=== PATIENT | female | born 2000 | race Caucasian/White ===

== ENCOUNTER 2018-04-15 07:54 | Emergency (ER) | payer OTHER, MEDICAID, SELFPAY ==
[2018-04-15 08:04] VITALS: BP 121/74; PULSE 82; RESP 12; TEMP 37.1; O2SAT 99
--- NOTE | 2018-04-15 08:17 | DI.US.S_ITS ---
PROCEDURE: US PELVIC COMPLETE INDICATIONS: L ovary Dermoid cyst with worse pain had vag US in past TECHNIQUE: Real-time scanning was performed of the pelvic organs, with image documentation. Additional endovaginal scanning was necessary due to incomplete visualization of the adnexal and endometrial structures by transabdominal scanning. COMPARISON: [facility], US, PELVIC COMPLETE, 02/17/2014, 5:46. [facility], CT, ABDOMEN/PELVIS WITH CONTRAST, 02/17/2014, 19:26. [facility], US, PELVIC COMPLETE, 02/12/2018, 9:44. [facility], US, PELVIC COMPLETE, 01/01/2018, 10:10. [facility], US, PELVIC COMPLETE, 03/31/2017, 12:52. FINDINGS: Transabdominal scanning: Limited scanning through the kidneys shows no hydronephrosis. No pathologic free abdominal or pelvic fluid. Endovaginal scanning: Uterus: Uterus is normal in size at 3.2 x 4.3 x 6.1 cm, anteverted. The endometrium measures 3.5 mm in combined thickness. Ovaries: The right ovary measures 2.1 x 3.0 x 1.5 cm, and the left is enlarged at 4.2 x 3.2 x 4.7 cm. It contains a complex avascular mass, portions of which are hyperechoic, measuring up to 3.4 x 2.9 x 2.7 cm, and a simple cyst measuring up to 1.9 x 1.9 x 2.2 cm. The left ovarian mass was previously present. IMPRESSION: Persistent complex left ovarian mass, which by ultrasound has an appearance highly suggestive of representing dermoid tumor. This was present on prior CT and ultrasound scanning. Gynecological surgical consultation is recommended given the malignant potential of dermoid tumor (teratoma). Dictated by: Spencer Broussard M.D. on 04/15/2018 at 9:37 Approved by: Spencer Broussard M.D. on 04/15/2018 at 9:43
--- NOTE | 2018-04-15 08:19 | ED.FEMALEGU ---
HPI - Female Genitourinary General Chief complaint: Urogenital-Female Stated complaint: OVARIAN CYST PAIN,NAUSEA Time Seen by Provider: 04/15/18 08:01 Source: patient and family Mode of arrival: ambulatory Limitations: no limitations History of Present Illness HPI Narrative: 17-year-old female currently on oral control pill here for evaluation of worsening pain in her left lower quadrant with associated nausea. States she was woken up in the middle the night with the pain. She states that she has a known left ovarian dermoid cyst. Scheduled to have this removed at the [facility] in approximately 1 month from now. She states that she has had dermoid cyst in the past and has had them surgically removed. She states that she also has endometriosis. She states that last night she had an increase in the pain. Not helped with any of her normal treatments such as heat and anti-inflammatories. She states she is here because she was told that this cyst could become larger and that she could have problems with her ovaries. She states that her last ultrasound was sometime earlier this year here at this hospital. She states that she has had a vaginal ultrasound of the past Related Data Previous Rx's Medication Instructions Recorded norethindrone-e.estradiol-iron 1 tab PO QDAY #1 pac 10/08/17 [ FE (28)] naproxen 500 mg PO BIDCC #60 tab 02/20/18 tramadol 50 mg PO Q6H PRN #10 tab 04/15/18 Allergies Allergy/AdvReac Type Severity Reaction Status Date / Time acetaminophen [From [facility]CO] Allergy Mild I JUST Verified 04/15/18 08:30 WENT KIND OF CRAZY ON IT hydrocodone [From [facility]CO] Allergy Mild I JUST Verified 04/15/18 08:30 WENT KIND OF CRAZY ON IT Review of Systems Constitutional Denies chills, Denies fever(s), Denies lethargy and Denies weakness Cardiovascular Denies chest pain, Denies irregular heart rhythm, Denies lightheadedness, Denies palpitations, Denies dyspnea, Denies dyspnea on exertion and Denies orthopnea Respiratory Denies cough, Denies dyspnea, Denies dyspnea on exertion and Denies wheezing Gastrointestinal Comments: Left lower quadrant abdominal pain with nausea no vomiting Genitourinary Denies hematuria, Denies flank pain, Denies urinary incontinence and Denies urinary urgency Comments: No vaginal bleeding, no vaginal discharge, Musculoskeletal Denies back pain, Denies muscle weakness, Denies numbness and Denies tingling Integumentary/Breasts Denies pruritus, Denies erythema, Denies rash and Denies wounds Neurologic Denies numbness, Denies tingling and Denies weakness Endocrine Denies palpitations Hematologic/Lymphatic Denies easy bruising Allergic/Immunologic Denies wheezing PMFSH Past Medical History Medical history: Reports other (1. Dermoid cyst 2. 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 Family history: Reports no significant family history Exam Const General: cooperative and well developed Nutritional Appearance: well nourished Orientation: alert, awake, oriented x3 and not confused Chest Chest: normal inspection of the chest Resp Effort & Inspection: normal respiratory effort, able to speak in complete sentences, no respiratory distress and no use of accessory muscles Auscultation: clear to auscultation bilaterally, no rales, no rhonchi and no wheezes Cardio Rate: regular rate Rhythm: regular rhythm Heart Sounds: no click, no gallops, no murmurs and no rubs Pulses: normal peripheral pulses GI Inspection: normal to inspection and non-distended Palpation: soft, no hepatosplenomegaly, No firm, No guarding, No pulsatile mass and tender (Left lower quadrant however no guarding no rebound) Auscultation: normal bowel sounds Other: Deferred Skin General: no rashes or lesions noted, No jaundice and No petechiae Neuro General: alert, oriented x3, gait normal and no focal motor deficits Speech: speech normal Motor: strength 5/5 throughout Sensory Exam: no sensory deficits noted Extrem General: full ROM, no clubbing, cyanosis or edema, no pedal edema and no calf tenderness MDM - Female Genitourinary MDM Narrative Medical decision making narrative: Patient with pelvic ultrasound in our system from December and January of this year however reports not available in the PACS system. Will obtain another ultrasound today. Does not show ovarian pathology secondary to the known dermoid. Patient does have follow-up with Ob already scheduled with a surgery in 30 days. Will treat symptomatically. Patient was given return precautions. Mother was at bedside for the discussion. They expressed understanding and agreement with plan Imaging Data Pelvic ultrasound: Radiologist's impression: PROCEDURE: US PELVIC COMPLETE INDICATIONS: L ovary Dermoid cyst with worse pain had vag US in past TECHNIQUE: Real-time scanning was performed of the pelvic organs, with image documentation. Additional endovaginal scanning was necessary due to incomplete visualization of the adnexal and endometrial structures by transabdominal scanning. COMPARISON: [facility], US, PELVIC COMPLETE, 02/17/2014, 5:46. [facility], CT, ABDOMEN/PELVIS WITH CONTRAST, 02/17/2014, 19:26. [facility], US, PELVIC COMPLETE, 02/12/2018, 9:44. [facility], US, PELVIC COMPLETE, 01/01/2018, 10:10. [facility], US, PELVIC COMPLETE, 03/31/2017, 12:52. FINDINGS: Transabdominal scanning: Limited scanning through the kidneys shows no hydronephrosis. No pathologic free abdominal or pelvic fluid. Endovaginal scanning: Uterus: Uterus is normal in size at 3.2 x 4.3 x 6.1 cm, anteverted. The endometrium measures 3.5 mm in combined thickness. Ovaries: The right ovary measures 2.1 x 3.0 x 1.5 cm, and the left is enlarged at 4.2 x 3.2 x 4.7 cm. It contains a complex avascular mass, portions of which are hyperechoic, measuring up to 3.4 x 2.9 x 2.7 cm, and a simple cyst measuring up to 1.9 x 1.9 x 2.2 cm. The left ovarian mass was previously present. IMPRESSION: Persistent complex left ovarian mass, which by ultrasound has an appearance highly suggestive of representing dermoid tumor. This was present on prior CT and ultrasound scanning. Gynecological surgical consultation is recommended given the malignant potential of dermoid tumor (teratoma). Dictated by: Spencer Broussard M.D. on 04/15/2018 at 9:37 Course Orders Ordered: ED Orders 04/15/18 08:17 US pelvic complete Stat Discontinued Medications Ondansetron HCl (Zofran Odt) 4 mg PO NOW ONE Stop: 04/15/18 08:20 Last Admin: 04/15/18 08:31 Dose: 4 mg Last Vital Signs Temp 98.7 F 04/15/18 08:04 Pulse 82 04/15/18 08:04 Resp 12 04/15/18 08:04 BP 121/74 H 04/15/18 08:04 Pulse Ox 99 04/15/18 08:04 Discharge Plan Departure Patient Disposition: Home, Self-Care Clinical Impression: Dermoid cyst of left ovary Instructions: DI for Ovarian Cyst Activity Restrictions/Additional Instructions: Keep all of your scheduled medical appointments. Return to the emergency department for any new or worsening symptoms Prescriptions: New tramadol 50 mg tablet 50 mg PO Q6H PRN (Reason: pain) Qty: 10 RF: 0 No Action norethindrone-e.estradiol-iron [ ()] 1.5 MG/30 MCG tablet 1 tab PO QDAY Qty: 1 RF: 12 naproxen 500 MG tablet 500 mg PO BIDCC Qty: 60 RF: 1 Stand Alone Forms: Work/School Restrictions
--- NOTE | 2018-04-15 08:30 | ED_ITS ---
HPI - Female Genitourinary General Chief complaint: Urogenital-Female Stated complaint: OVARIAN CYST PAIN,NAUSEA Time Seen by Provider: 04/15/18 08:01 Source: patient and family Mode of arrival: ambulatory Limitations: no limitations History of Present Illness HPI Narrative: 17-year-old female currently on oral control pill here for evaluation of worsening pain in her left lower quadrant with associated nausea. States she was woken up in the middle the night with the pain. She states that she has a known left ovarian dermoid cyst. Scheduled to have this removed at the [facility] in approximately 1 month from now. She states that she has had dermoid cyst in the past and has had them surgically removed. She states that she also has endometriosis. She states that last night she had an increase in the pain. Not helped with any of her normal treatments such as heat and anti-inflammatories. She states she is here because she was told that this cyst could become larger and that she could have problems with her ovaries. She states that her last ultrasound was sometime earlier this year here at this hospital. She states that she has had a vaginal ultrasound of the past Related Data Previous Rx's Medication Instructions Recorded norethindrone-e.estradiol-iron 1 tab PO QDAY #1 pac 10/08/17 [ FE (28)] naproxen 500 mg PO BIDCC #60 tab 02/20/18 tramadol 50 mg PO Q6H PRN #10 tab 04/15/18 Allergies Allergy/AdvReac Type Severity Reaction Status Date / Time acetaminophen [From [facility]] Allergy Mild I JUST Verified 04/15/18 08:30 WENT KIND OF CRAZY ON IT hydrocodone [From [facility]CO] Allergy Mild I JUST Verified 04/15/18 08:30 WENT KIND OF CRAZY ON IT Review of Systems Constitutional Denies chills, Denies fever(s), Denies lethargy and Denies weakness Cardiovascular Denies chest pain, Denies irregular heart rhythm, Denies lightheadedness, Denies palpitations, Denies dyspnea, Denies dyspnea on exertion and Denies orthopnea Respiratory Denies cough, Denies dyspnea, Denies dyspnea on exertion and Denies wheezing Gastrointestinal Comments: Left lower quadrant abdominal pain with nausea no vomiting Genitourinary Denies hematuria, Denies flank pain, Denies urinary incontinence and Denies urinary urgency Comments: No vaginal bleeding, no vaginal discharge, Musculoskeletal Denies back pain, Denies muscle weakness, Denies numbness and Denies tingling Integumentary/Breasts Denies pruritus, Denies erythema, Denies rash and Denies wounds Neurologic Denies numbness, Denies tingling and Denies weakness Endocrine Denies palpitations Hematologic/Lymphatic Denies easy bruising Allergic/Immunologic Denies wheezing PMFSH Past Medical History Medical history: Reports other (1. Dermoid cyst 2. 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 MILL OPERATOR history Family history: Reports no significant family history Exam Const General: cooperative and well developed Nutritional Appearance: well nourished Orientation: alert, awake, oriented x3 and not confused Chest Chest: normal inspection of the chest Resp Effort & Inspection: normal respiratory effort, able to speak in complete sentences, no respiratory distress and no use of accessory muscles Auscultation: clear to auscultation bilaterally, no rales, no rhonchi and no wheezes Cardio Rate: regular rate Rhythm: regular rhythm Heart Sounds: no click, no gallops, no murmurs and no rubs Pulses: normal peripheral pulses GI Inspection: normal to inspection and non-distended Palpation: soft, no hepatosplenomegaly, No firm, No guarding, No pulsatile mass and tender (Left lower quadrant however no guarding no rebound) Auscultation: normal bowel sounds Other: Deferred Skin General: no rashes or lesions noted, No jaundice and No petechiae Neuro General: alert, oriented x3, gait normal and no focal motor deficits Speech: speech normal Motor: strength 5/5 throughout Sensory Exam: no sensory deficits noted Extrem General: full ROM, no clubbing, cyanosis or edema, no pedal edema and no calf tenderness MDM - Female Genitourinary MDM Narrative Medical decision making narrative: Patient with pelvic ultrasound in our system from December and January of this year however reports not available in the PACS system. Will obtain another ultrasound today. Does not show ovarian pathology secondary to the known dermoid. Patient does have follow-up with Ob already scheduled with a surgery in 30 days. Will treat symptomatically. Patient was given return precautions. Mother was at bedside for the discussion. They expressed understanding and agreement with plan Imaging Data Pelvic ultrasound: Radiologist's impression: PROCEDURE: US PELVIC COMPLETE INDICATIONS: L ovary Dermoid cyst with worse pain had vag US in past TECHNIQUE: Real-time scanning was performed of the pelvic organs, with image documentation. Additional endovaginal scanning was necessary due to incomplete visualization of the adnexal and endometrial structures by transabdominal scanning. COMPARISON: [facility], US, PELVIC COMPLETE, 02/17/2014, 5:46. [facility], CT, ABDOMEN/PELVIS WITH CONTRAST, 02/17/2014, 19:26. [facility], US , PELVIC COMPLETE, 02/12/2018, 9:44. [facility], US, PELVIC COMPLETE, , 10:10. [facility], US, PELVIC COMPLETE, 03/31/2017, 12:52. FINDINGS: Transabdominal scanning: Limited scanning through the kidneys shows no hydronephrosis. No pathologic free abdominal or pelvic fluid. Endovaginal scanning: Uterus: Uterus is normal in size at 3.2 x 4.3 x 6.1 cm, anteverted. The endometrium measures 3.5 mm in combined thickness. Ovaries: The right ovary measures 2.1 x 3.0 x 1.5 cm, and the left is enlarged at 4.2 x 3.2 x 4.7 cm. It contains a complex avascular mass, portions of which are hyperechoic, measuring up to 3.4 x 2.9 x 2.7 cm, and a simple cyst measuring up to 1.9 x 1.9 x 2.2 cm. The left ovarian mass was previously present. IMPRESSION: Persistent complex left ovarian mass, which by ultrasound has an appearance highly suggestive of representing dermoid tumor. This was present on prior CT and ultrasound scanning. Gynecological surgical consultation is recommended given the malignant potential of dermoid tumor (teratoma). Dictated by: Spencer Broussard M.D. on 04/15/2018 at 9:37 Course Orders Ordered: ED Orders 04/15/18 08:17 US pelvic complete Stat Discontinued Medications Ondansetron HCl (Zofran Odt) 4 mg PO NOW ONE Stop: 04/15/18 08:20 Last Admin: 04/15/18 08:31 Dose: 4 mg Last Vital Signs Temp 98.7 F 04/15/18 08:04 Pulse 82 04/15/18 08:04 Resp 12 04/15/18 08:04 BP 121/74 H 04/15/18 08:04 Pulse Ox 99 04/15/18 08:04 Discharge Plan Departure Patient Disposition: Home, Self-Care Clinical Impression: Dermoid cyst of left ovary Instructions: DI for Ovarian Cyst Activity Restrictions/Additional Instructions: Keep all of your scheduled medical appointments. Return to the emergency department for any new or worsening symptoms Prescriptions: New tramadol 50 mg tablet 50 mg PO Q6H PRN (Reason: pain) Qty: 10 RF: 0 No Action norethindrone-e.estradiol-iron [ ()] 1.5 MG/30 MCG tablet 1 tab PO QDAY Qty: 1 RF: 12 naproxen 500 MG tablet 500 mg PO BIDCC Qty: 60 RF: 1 Stand Alone Forms: Work/School Restrictions
[2018-04-15] MEDS: ONDANSETRON 4 MG ODT PO (08:31)
[2018-04-15 10:24] VITALS: BP 128/67; PULSE 77; RESP 15; O2SAT 100
== END 2018-04-15 10:24 | disposition home or self-care (01) ==
PROVIDERS: Emergency Provider Emergency Medicine
DX: D27.1 Benign neoplasm of left ovary (principal)
CPT/HCPCS: 76830; 76856; 81003; 81025; 99282; 99284

== ENCOUNTER → 2020-08-05 11:37 | Outpatient (CLI) | payer OTHER, MEDICAID, SELFPAY ==
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
== END ==
PROVIDERS: PCP Family Medicine; Referring Provider Nurse Practitioner Family; Visit Provider Nurse Practitioner Family
DX: M25.561 Pain in right knee (principal)
CPT/HCPCS: 73562

== ENCOUNTER → 2020-08-10 08:13 | Outpatient (CLI) | payer OTHER, MEDICAID, SELFPAY ==
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
== END ==
PROVIDERS: PCP Family Medicine; Referring Provider Family Medicine; Visit Provider Nurse Practitioner Family
DX: S39.91XA Unspecified injury of abdomen, initial encounter (principal); V89.2XXA Person injured in unspecified motor-vehicle accident, traffic, initial encounter
CPT/HCPCS: 76700

== ENCOUNTER → 2020-09-13 11:19 | Outpatient (CLI) | payer OTHER, MEDICAID, SELFPAY ==
--- NOTE | 2020-09-13 11:21 | DI.RAD.S_ITS ---
PROCEDURE: XR CERVICAL SPINE 2V OR 3V INDICATIONS: neck pain TECHNIQUE: 3 view(s) of the cervical spine were acquired. COMPARISON: None. FINDINGS: Bones: No fractures or dislocations to the C7-T1 level. The lateral masses of C1 appear intact on the odontoid view. No suspicious bony lesions. Cervical straightening is present. Soft tissues: No prevertebral soft tissue swelling. IMPRESSION: Cervical straightening. Otherwise, unremarkable exam. Dictated by: Jessica Solano M.D. on 09/13/2020 at 17:02 Approved by: Jessica Solano M.D. on 09/13/2020 at 17:03
== END ==
PROVIDERS: PCP Family Medicine; Referring Provider Family Medicine; Visit Provider Family Medicine
DX: M54.2 Cervicalgia (principal); G89.29 Other chronic pain
CPT/HCPCS: 72040

== ENCOUNTER → 2020-12-15 09:14 | Outpatient (CLI) | payer OTHER, MEDICAID, SELFPAY ==
[2020-12-15 12:23] LABS: Urine N gonorrhoeae NOT DETECTED
[2020-12-15 12:41] LABS: Urine Chlamydia NOT DETECTED
[2020-12-15 16:29] LABS: HIV 1 & 2 Ab/Ag 4th Gen Combo NEGATIVE (NEGATIVE); Hep C Virus Ab w/Reflex Quant NEGATIVE s/c (NEGATIVE); Hepatitis B Surface Antigen NEGATIVE s/c (NEGATIVE)
[2020-12-16 05:40] LABS: RPR Screen Non Reactive (Non Reactive)
[2020-12-16 06:04] LABS: HSV 2 IGG AB < 0.91 index (0.00-0.90); HSV1IGG < 0.91 index (0.00-0.90)
[2020-12-16 19:45] LABS: HSV I/II IgM <0.91 Ratio (0.00-0.90)
== END ==
PROVIDERS: PCP Family Medicine; Referring Provider Registered Nurse; Visit Provider Registered Nurse
DX: Z20.2 Contact with and (suspected) exposure to infections with a predominantly sexual mode of transmission (principal)
CPT/HCPCS: 36415; 86592; 86694; 86695; 86696; 86803; 87340; 87389; 87491; 87591

== ENCOUNTER → 2021-02-16 13:44 | Outpatient (CLI) | payer OTHER, MEDICAID, SELFPAY ==
[2021-02-16] MEDS: COVID-19 VACC #1, MRNA(MOD) 100 MCG/0.5 ML VIAL IM (13:48)
== END ==
PROVIDERS: PCP Family Medicine; Visit Provider Internal Medicine
DX: Z23 Encounter for immunization (principal)
CPT/HCPCS: 0011A; 91301

== ENCOUNTER → 2021-03-02 10:31 | Outpatient (CLI) | payer OTHER, MEDICAID, SELFPAY ==
--- NOTE | 2021-03-02 10:32 | DI.US.S_ITS ---
PROCEDURE: US PELVIC COMPLETE INDICATIONS: Evaluate recurrent ovarian dermoid cyst TECHNIQUE: Real-time scanning was performed of the pelvic organs, with image documentation. Additional endovaginal scanning was necessary due to incomplete visualization of the adnexal and endometrial structures by transabdominal scanning. COMPARISON: [facility], US, US PELVIC COMPLETE, 04/15/2018, 8:26. FINDINGS: Uterus: Uterus is normal in size at 4.2 x 2.5 x 3.9 cm. Uterus is retroverted. The endometrium measures 2 mm in combined thickness. Homogeneous uterine echotexture. Ovaries: Right ovary is normal in appearance measuring 3.3 x 1.7 x 1.6 cm. No right-sided ovarian or adnexal mass lesions. Left ovary measures 3.7 x 4.8 x 4.1 cm. Multiple left ovarian cysts are seen measuring up to 2.3 cm in maximum dimension. Redemonstration of complex, heterogeneous left ovarian mass measuring approximately 7.1 x 5.7 x 6.2 cm. There is internal vascularity within this mass. This has demonstrated interval increase in size of the previously measured 3.4 x 2.9 x 2.7 cm. Other: No pathologic free abdominal or pelvic fluid. IMPRESSION: Interval increase in persistent complex left ovarian mass which has previously demonstrated sonographic features suggestive of a dermoid tumor. This mass has increased substantially in size now measuring 7.1 x 5.7 x 6.2 cm versus previously 2.4 x 2.9 x 2.7 cm in April 2018. Recommend further evaluation with gynecological surgical consultation. Dictated by: Bill Roberts M.D. on 03/02/2021 at 12:37 Approved by: Bill Roberts M.D. on 03/02/2021 at 13:00
== END ==
PROVIDERS: PCP Family Medicine; Referring Provider Obstetrics & Gynecology; Visit Provider Obstetrics & Gynecology
DX: D27.1 Benign neoplasm of left ovary (principal); N80.3 Endometriosis of pelvic peritoneum; N92.6 Irregular menstruation, unspecified; R10.2 Pelvic and perineal pain
CPT/HCPCS: 76830; 76856

== ENCOUNTER → 2021-03-09 10:20 | Outpatient (CLI) | payer OTHER, MEDICAID, SELFPAY ==
--- NOTE | 2021-03-09 10:24 | DI.RAD.S_ITS ---
PROCEDURE: XR RIBS LT MIN 3V W CXR1V INDICATIONS: l lower rib pain TECHNIQUE: 2 views of the left ribs were acquired, along with a single view chest. COMPARISON: None. FINDINGS: Surgical changes and devices: Bilateral nipple piercing devices are noted.. Bones and chest wall: No fractures or dislocations. No suspicious bony lesions. Overlying soft tissues appear unremarkable. Lungs and pleura: No pleural effusions or pneumothorax. Lungs appear clear. Mediastinum: Mediastinal contours appear normal. Heart size is normal. IMPRESSION: Chest without acute cardiopulmonary abnormalities. No acute, displaced rib fractures identified. Dictated by: Bill Roberts M.D. on 03/09/2021 at 10:41 Approved by: Bill Roberts M.D. on 03/09/2021 at 10:42
== END ==
PROVIDERS: PCP Family Medicine; Referring Provider Physician Assistant; Visit Provider Physician Assistant
DX: R07.81 Pleurodynia (principal)
CPT/HCPCS: 71101

== ENCOUNTER 2021-03-10 18:08 | Emergency (ER) | payer OTHER, MEDICAID, SELFPAY ==
[2021-03-10 18:19] VITALS: BP 156/81; PULSE 82; RESP 16; TEMP 36.4; O2SAT 98; BMI 34.9
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
[2021-03-10] MEDS: KETOROLAC 60 MG/2 ML VIAL 30 MG IM (19:16)
[2021-03-10] MEDS: ONDANSETRON 4 MG ODT SL (19:17)
[2021-03-10] MEDS: TRAMADOL 50 MG PREPACK 1 BOTTLE MISC (21:16)
[2021-03-10] MEDS: ONDANSETRON 4 MG ODT PREPACK 1 BOTTLE MISC (21:16)
[2021-03-10 21:24] VITALS: BP 133/88; PULSE 87; RESP 20; O2SAT 97
== END 2021-03-10 21:25 | disposition home or self-care (01) ==
PROVIDERS: Emergency Provider Emergency Medicine; PCP Family Medicine
DX: N83.201 Unspecified ovarian cyst, right side (principal)
CPT/HCPCS: 76830; 76856; 81003; 81025; 96372; 99284; J1885

== ENCOUNTER → 2021-03-16 13:28 | Outpatient (CLI) | payer OTHER, MEDICAID, SELFPAY ==
[2021-03-16] MEDS: COVID-19 VACC #2, MRNA(MOD) 100 MCG/0.5 ML VIAL IM (13:34)
== END ==
PROVIDERS: PCP Family Medicine; Visit Provider Internal Medicine
DX: Z23 Encounter for immunization (principal)
CPT/HCPCS: 0012A; 91301

== ENCOUNTER → 2021-08-22 07:30 | Outpatient (CLI) | payer OTHER, MEDICAID, SELFPAY ==
[2021-08-22 08:40] LABS: COVID19 -Nasal RAPID Negative (Negative)
== END ==
PROVIDERS: PCP Family Medicine; Visit Provider Physician Assistant
DX: Z20.822 Contact with and (suspected) exposure to COVID-19 (principal)
CPT/HCPCS: 87635

== ENCOUNTER → 2021-11-29 10:06 | Outpatient (CLI) | payer OTHER, MEDICAID, SELFPAY ==
[2021-11-29 12:32] LABS: Urine N gonorrhoeae NOT DETECTED
[2021-11-29 13:14] LABS: Urine Chlamydia NOT DETECTED
== END ==
PROVIDERS: PCP Family Medicine; Visit Provider Nurse Practitioner Family
DX: R30.0 Dysuria (principal)
CPT/HCPCS: 81002; 87086; 87210; 87491; 87591

== ENCOUNTER 2021-12-30 11:08 | Emergency (ER) | payer OTHER, MEDICAID, SELFPAY ==
[2021-12-30] VITALS (8 sets, daily range): BP systolic 110–136; BP diastolic 56–94; PULSE 65–86; RESP 16; TEMP 36.7; O2SAT 75–99; BMI 40.1
[2021-12-30] MEDS: ONDANSETRON 4 MG ODT PO (11:31)
[2021-12-30] MEDS: ONDANSETRON 4 MG/2 ML INJ IV ×2 (14:15→16:19)
[2021-12-30 14:28] LABS: Add Manual Diff / Slide Review NO; Basophils Absolute Auto 100 /uL (0-100); Basophils Percent Auto 0.9 % (0-2); Eosinophils Absolute Auto 100 /uL (0-450); Eosinophils Percent Auto 0.5 % (2-4); Hematocrit 39.1 % (36-46); Lymphocytes Absolute Auto 1900 /uL (1100-4500); Lymphocytes Percent Auto 15.9 % (25-40); Mean Corpuscular HGB Conc 33.2 % (30-36); Mean Corpuscular Hemoglobin 28.3 PG (26-34); Mean Corpuscular Volume 85.3 fL (80-100); Monocytes Absolute Auto 600 /uL (0-900); Monocytes Percent Auto 4.7 % (3-14); Neutrophils Absolute Auto 9100 /uL (1500-7000); Platelet Count 354 X10^3/uL (150-400); Red Blood Cell Count 4.58 X10^6/uL (4.0-5.2); Red Cell Distribution Width 14.4 % (11.6-14.8); White Blood Cell Count 11.6 X10^3/uL (4.5-11.0)
[2021-12-30 14:38] LABS: Bacteria Urine Many (>30); Culture Indicated Urine Cult Not Indicated; RBC Urine 5-10/HPF (0-5/HPF); Squamous Epithelial Cell Urine 5-10 /HPF (0-5/HPF); WBC Urine 0-1/HPF (0-5/HPF)
[2021-12-30 14:43] LABS: Alanine Aminotransferase 35 IU/L (<35); Albumin 4.3 g/dL (3.5-5.0); Albumin Globulin Ratio 1.4 (1.0-2.8); Alkaline Phosphatase 67 U/L (38-126); Aspartate Aminotransferase 32 IU/L (14-36); BUN Creatinine Ratio 15.5 (6-22); Bilirubin Total 0.2 mg/dL (0.2-1.3); Blood Urea Nitrogen 9 mg/dL (7-17); Calcium 9.3 mg/dL (8.4-10.2); Carbon Dioxide 26 mmol/L (22-32); Chloride 106 mmol/L (98-107); Estimated Glomerular Filt Rate > 60.0 mL/min (>60); Glucose 95 mg/dL (70-100); HEMOLYSIS < 15 (0-50); Lipase 47 U/L (23-300); Potassium 3.9 mmol/L (3.4-5.1); Sodium 138 mmol/L (137-145); Total Protein 7.3 g/dL (6.3-8.2)
[2021-12-30] MEDS: KETOROLAC 30 MG/ML VIAL 15 MG IV (14:57)
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
--- NOTE | 2021-12-30 15:18 | DI.CT.S_ITS ---
PROCEDURE: CT ABDOMEN PELVIS W CON INDICATIONS: abdominal pain TECHNIQUE: After the administration of oral and IV contrast, axial sections were acquired from the lung bases to the pubic symphysis. Coronal and sagittal reformats were performed. For radiation dose reduction, the following was used: automated exposure control, adjustment of mA and/or kV according to patient size. COMPARISON: [facility], CT, ABDOMEN/PELVIS WITH CONTRAST, 02/17/2014, 19:26. FINDINGS: Image quality: Excellent. Lung bases: Unremarkable. Heart: Heart is normal in size. ABDOMEN: Liver: No mass lesion. Gallbladder: Within normal limits without gallstones. Biliary ducts: No biliary ductal dilatation. Pancreas: Unremarkable. Spleen: Normal in size. Adrenal Glands: No adrenal nodules. Kidneys and Ureters: No hydronephrosis. Stomach and Bowel: Stomach, small bowel loops, and colon are normal in caliber and wall thickness. The appendix is normal in appearance. There is colonic diverticulosis without acute diverticulitis. Peritoneum: There is a small amount of free fluid in the pelvis which appears within physiologic limits. No free air. Ventral Wall: No hernia. Abdominal Nodes: No retroperitoneal or mesenteric adenopathy by size criteria. Vessels: Aorta and inferior vena cava are normal in size. PELVIS: Pelvic Organs: The uterus and right ovary appear within normal size limits. Left ovary is surgically absent by history. Bladder: Unremarkable. Pelvic Nodes: No enlarged lymph nodes. Miscellaneous: No inguinal hernias are seen. Bones: Visualized osseous structures demonstrate no suspicious focal lesions. IMPRESSION: 1. No definite acute intra-abdominal abnormality. Specifically, no evidence of appendicitis. 2. Colonic diverticulosis without acute diverticulitis. Dictated by: Calvin Toure M.D. on 12/30/2021 at 15:59 Approved by: Calvin Toure M.D. on 12/30/2021 at 16:02
[2021-12-30] MEDS: HYDROMORPHONE 1 MG INJ IV (16:19)
[2021-12-30] MEDS: SODIUM CHLORIDE 0.9% 1,000 ML 1000 ML IV (16:19)
== END 2021-12-30 17:47 | disposition home or self-care (01) ==
PROVIDERS: Emergency Provider Emergency Medicine; PCP Family Medicine
DX: R10.32 Left lower quadrant pain (principal)
CPT/HCPCS: 36415; 74177; 80053; 81003; 81015; 81025; 83690; 85025; 96361; 96374; 96375; 96376; 99284; J1170; J1885; J2405; Q9967

== ENCOUNTER → 2022-01-30 09:11 | Outpatient (CLI) | payer OTHER, MEDICAID, SELFPAY ==
[2022-01-30 12:08] LABS: HCG Quantitative /Beta subunit < 2.4 mIU/mL
== END ==
PROVIDERS: PCP Family Medicine; Referring Provider Family Medicine; Visit Provider Family Medicine
DX: N92.6 Irregular menstruation, unspecified (principal)
CPT/HCPCS: 36415; 84702

== ENCOUNTER → 2022-05-21 16:37 | Outpatient (CLI) | payer OTHER, MEDICAID, SELFPAY | PROVIDERS: Visit Provider Student in an Organized Health Care Education/Training Program | DX: L02.91 Cutaneous abscess, unspecified (principal) | CPT/HCPCS: 87070; 87075; 87205 ==

== ENCOUNTER → 2022-06-22 10:20 | Outpatient (CLI) | payer OTHER, MEDICAID, SELFPAY ==
[2022-06-22 10:50] LABS: COVID19 -Nasal RAPID Negative (Negative)
[2022-06-22 12:42] LABS: Influenza A - CEPHEID Flu A NEGATIVE (NEGATIVE); Influenza B - CEPHEID Flu B NEGATIVE (NEGATIVE)
== END ==
PROVIDERS: Visit Provider Student in an Organized Health Care Education/Training Program
DX: Z20.822 Contact with and (suspected) exposure to COVID-19 (principal); J31.2 Chronic pharyngitis; J06.9 Acute upper respiratory infection, unspecified
CPT/HCPCS: 87070; 87502; 87635; 87880

== ENCOUNTER 2022-09-14 10:32 | Emergency (ER) | payer OTHER, MEDICAID, SELFPAY ==
[2022-09-14 10:35] VITALS: BP 135/74; PULSE 95; RESP 14; TEMP 37.1; O2SAT 96; BMI 39.1
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
== END 2022-09-14 11:15 | disposition home or self-care (01) ==
PROVIDERS: Emergency Provider Emergency Medicine; PCP Family Medicine
DX: N76.4 Abscess of vulva (principal)
CPT/HCPCS: 56405; 99281; 99282

== ENCOUNTER → 2022-11-26 09:05 | Outpatient (CLI) | payer OTHER, MEDICAID, SELFPAY ==
--- NOTE | 2022-11-26 09:06 | DI.MRI.S_ITS ---
PROCEDURE: MR ABDOME PELVIS WWO CON INDICATIONS: cyst, possible right ovarian mass. TECHNIQUE: Coronal HASTE, sagittal breath-hold T2 FSE; axial 2-D FLASH in- and [id number], axial T1 FSE with fat saturation through the pelvis. Optional long- and short-axis uterine nonbreath-hold T2 FSE through the uterus. Sagittal or axial dynamic VIBE during IV gadolinium administration; postgadolinium axial and sagittal VIBE/2-D FLASH with fat saturation from the iliac crests to the symphysis. COMPARISON: [facility] Ultrasound, US, US PELVIC COMPLETE WITH TRANSVAGINAL, 09/11/2022, 16:11. FINDINGS: Image quality: Excellent. Uterus: The uterus is retroverted and anteflexed. The cervix appears normal. No myometrial masses. Normal thickness endometrium and junctional zone. Normal uterine enhancement. Adnexa: The left ovary is surgically absent. The right ovary is normal in size and contains several subcentimeter follicles. Additionally, it contains a rounded mass measuring 2.0 x 1.9 x 1.8 cm demonstrating slightly heterogeneous, mainly hyperintense T1 and T2 signal. It demonstrates internal signal loss on fat saturated imaging. Additionally, there are small nodular peripheral areas of signal loss on T1 out of phase imaging indicating a fat tissue interface and/or microscopic. Postcontrast, there is mild enhancement on the venous phase of a small solid internal component. There is no suspicious pelvic adenopathy. Urinary system: The urinary bladder is largely decompressed on much the exam. The wall thickness is normal. There is no suspicious bladder mass or wall thickening. No evidence of pelvic floor laxity in the absence of provocation. Urethra is normal in morphology. Abdomen: The stomach is filled with ingested material and the gallbladder is contracted. There is no biliary dilatation. The liver, spleen, adrenal glands, pancreas, and kidneys are within normal limits. Subcentimeter corticomedullary cysts present in the mid and lower pole of the right kidney. Small bowel loops are normal. There is occasional diverticulosis of the colon. No retroperitoneal or mesenteric adenopathy. No unusual enhancement. Vasculature is normal. Bones and soft tissues: Normal marrow signal. No ventral hernia. IMPRESSION: 1. 2.0 cm heterogeneous right ovarian mass with soft tissue and lipid components consistent with a dermoid tumor. 2. Left ovary is surgically absent. 3. Annual ultrasound surveillance to reassess dermoid tumor size is recommended. Dictated by: Michelle Silvestre M.D. on 11/27/2022 at 22:00 Approved by: Michelle Silvestre M.D. on 11/27/2022 at 22:27
== END ==
PROVIDERS: PCP Family Medicine; Referring Provider Family Medicine; Visit Provider Family Medicine
DX: N83.8 Other noninflammatory disorders of ovary, fallopian tube and broad ligament (principal); Z90.721 Acquired absence of ovaries, unilateral
CPT/HCPCS: 72197; 74183; A9579

== ENCOUNTER → 2022-12-04 13:00 | Outpatient (CLI) | payer OTHER, MEDICAID, SELFPAY ==
[2022-12-04 14:14] LABS: Influenza A - CEPHEID Flu A NEGATIVE (NEGATIVE); Influenza B - CEPHEID Flu B NEGATIVE (NEGATIVE); Respiratory Syncytial Virus Negative (Negative)
[2022-12-04 14:20] LABS: COVID-19 CEPHEID 4-PLEX PCR Negative (Negative)
== END ==
PROVIDERS: PCP Family Medicine; Visit Provider Physician Assistant Medical
DX: J02.9 Acute pharyngitis, unspecified (principal); R05.1 Acute cough
CPT/HCPCS: 0241U; 87070

== ENCOUNTER → 2023-06-21 16:24 | Outpatient (CLI) | payer OTHER, SELFPAY ==
[2023-06-21 18:25] LABS: Urine N gonorrhoeae NOT DETECTED
[2023-06-21 18:30] LABS: Urine Chlamydia NOT DETECTED
[2023-06-21 18:41] LABS: HCG Quantitative /Beta subunit < 2.4 mIU/mL
[2023-06-21 18:52] LABS: Cancer Antigen 125 16.6 U/mL (0-35)
[2023-06-21 19:15] LABS: HIV 1 & 2 Ab/Ag 4th Gen Combo NEGATIVE (NEGATIVE)
[2023-06-22 04:27] LABS: RPR Screen Non Reactive (Non Reactive)
[2023-06-22 08:47] LABS: HBsAg Screen Negative (Negative); Hepatitis A Antibody IgM Negative (Negative); Hepatitis B Core Antibody IgM Negative (Negative); Hepatitis C Antibody Non Reactive (Non Reactive)
== END ==
PROVIDERS: Family Medicine; Referring Provider Family Medicine; Visit Provider Family Medicine
DX: Z32.00 Encounter for pregnancy test, result unknown (principal); N83.8 Other noninflammatory disorders of ovary, fallopian tube and broad ligament
CPT/HCPCS: 36415; 80074; 84702; 86304; 86592; 87389; 87491; 87591

== ENCOUNTER 2024-06-12 16:52 | Emergency (ER) | payer OTHER, SELFPAY ==
[2024-06-12 16:57] VITALS: BP 159/95; PULSE 102; RESP 14; TEMP 36.7; O2SAT 97; BMI 37.5
--- NOTE | 2024-06-12 17:57 | DI.US.S_ITS ---
PROCEDURE: US PELVIC COMPLETE INDICATIONS: SPOTTING; EARLY TECHNIQUE: Real-time scanning was performed of the pelvic organs, with image documentation. Additional endovaginal scanning was necessary due to incomplete visualization of the adnexal and endometrial structures by transabdominal scanning. COMPARISON: [facility], US, US PELVIC COMPLETE WITH TRANSVAGINAL, 02/17/2024, 8:44. FINDINGS: Uterus: Uterus is anteverted and normal in size at 7.6 x 4.2 x 4.7 cm. The myometrium is homogeneous. The endometrium measures 10 mm combined thickness. No intrauterine fluid collection or gestational sac is seen. Ovaries: The right ovary measures 5.6 x 6.1 x 4.6 cm, with a calculated ovarian volume of 82 cc. A 3.6 cm simple cyst is seen in the right ovary. There is a right ovarian dermoid tumor measuring 3.8 cm. A 2.4 cm hypoechoic structure in the right ovary is also noted with peripheral vascularity. Left ovary is not visualized. No suspicious left adnexal mass. Other: No pathologic free abdominal or pelvic fluid. IMPRESSION: 1. of unknown location. Findings may represent normal early , early failure, or ectopic . Recommend correlation with clinical findings and serial beta HCG measurements as well as follow-up ultrasound as needed. 2. Hypoechoic structure in the right ovary with peripheral vascularity may represent a corpus luteal cyst, hemorrhagic cyst, solid tumor, or possibly ovarian ectopic. 3. Right ovarian dermoid tumor measures up to 3.8 cm, likely not significantly changed when compared to the ultrasound from 02/17/2024. Approved by: Zackery Monson M.D. on 06/12/2024 at 19:41
--- NOTE | 2024-06-12 18:22 | ED.PREGNANCY ---
HPI - General Chief complaint: Urogenital-Female Stated complaint: 5 wks/vaginal bleeding/cramps Time Seen by Provider: 06/12/24 17:57 Source: patient Mode of arrival: Ambulatory Limitations: no limitations History of Present Illness HPI Narrative: 23-year-old female presents for vaginal bleeding in early . Patient states that she went to [facility] earlier this week and was told based on a blood test that she was approximately 5 weeks . Due to stressful family circumstances she was in exactly certain when her last menstrual cycle happened. States this is 2nd , had miscarriage this time last year. Related Data Previous Rx's Medication Instructions Recorded norethindrone 1.5 mg-ethinyl 1 tab PO QDAY #84 tabs 12/03/18 estradiol 30 mcg(21)/iron 75 mg(7) tablet (June FE .04/30 ()) prazosin 5 mg capsule 10 mg (2 x 5 mg) PO BEDTIME #60 01/04/21 caps ibuprofen 800 mg tablet 800 mg PO TID PRN pain #90 tabs 03/08/21 scopolamine base 1 mg over 3 days 1 patch transdermal Q3D PRN motion 03/08/21 transdermal patch sickness #4 ea tramadol 50 mg tablet (Ultram) 50 mg PO Q6H PRN pain #10 tabs 03/10/21 fluoxetine 10 mg capsule 10 mg PO BID #180 caps 03/23/21 oxycodone-acetaminophen 5 mg-325 1 tab PO Q6H PRN pain #10 tabs 12/30/21 mg tablet fluconazole 200 mg tablet 200 mg PO DAILY #6 tabs 08/01/22 amoxicillin 875 mg-potassium 1 tab PO BID #20 tabs 12/04/22 clavulanate 125 mg tablet lidocaine HCl 2 % mucosal jelly in 3 ml topical BID PRN pain #30 mL 03/04/23 applicator Allergies Allergy/AdvReac Type Severity Reaction Status Date / Time miconazole [From Karissa 7] AdvReac Intermediate moctezuma skin Verified 12/04/22 13:24 PMFSH - Past Medical History Medical history: Reports other Surgical history: Reports other Exam Initial Vital Signs Initial Vital Signs: Vital Signs Temperature 98.1 F 06/12/24 16:57 Pulse Rate 102 H 06/12/24 16:57 Respiratory Rate 14 06/12/24 16:57 Blood Pressure 159/95 H 06/12/24 16:57 Pulse Oximetry 97 06/12/24 16:57 Oxygen Delivery Method Room Air 06/12/24 16:57 Const: Awake, alert, no acute distress, nontoxic appearing Cardiac: regular rate, regular rhythm RESP: unlabored, speaking in complete sentences Skin: Warm, Dry, intact, no rashes Neuro: AO x3, CN II-XII grossly intact, moves all extremities Course Orders Ordered: ED Orders 06/12/24 17:57 US pelvic complete Stat 06/12/24 18:15 ABO RH Type Stat CBC Auto Diff [Complete Blood Count AUTO DIFF] Stat CMP [Comprehensive Metabolic Panel] Stat HCG Quantitative /Beta subunit Stat Vital Signs Vital signs: Vital Signs - 8 hr 06/12/24 19:57 06/12/24 19:57 Temperature 98.0 F Pulse Rate 82 Blood Pressure 127/80 Pulse Oximetry 98 MDM - OB/Uterine Contractions Lab Data 06/12/24 18:15 06/12/24 18:15 Labs: Lab Results 06/12/24 Range/Units 18:15 WBC 11.8 H (4.5-11.0) X10^3/uL RBC 4.30 (4.0-5.2) X10^6/uL Hgb 12.1 (12.0-16.0) g/dL Hct 36.8 (36-46) % MCV 85.5 (80-100) fL MCH 28.2 (26-34) PG MCHC 33.0 (30-36) % RDW 14.4 (11.6-14.8) % Plt Count 354 (150-400) X10^3/uL Neut % (Auto) 66.6 (50-75) % Lymph % (Auto) 24.9 L (25-40) % [place] % (Auto) 6.3 (3-14) % Eos % (Auto) 0.7 L (2-4) % Baso % (Auto) 1.5 (0-2) % Neut # (Auto) 7900 H (1994-6451) /uL Lymph # (Auto) 2900 (5796-8108) /uL [place] # (Auto) 700 (0-900) /uL Eos # (Auto) 100 (0-450) /uL Baso # (Auto) 200 H (0-100) /uL Sodium 136 L (137-145) mmol/L Potassium 4.2 (3.4-5.1) mmol/L Chloride 109 H (98-107) mmol/L Carbon Dioxide 21 L (22-32) mmol/L BUN 10 (7-17) mg/dL Creatinine 0.51 L (0.52-1.04) mg/dL Estimated GFR > 60 (>60) mL/min BUN/Creatinine Ratio 19.6 (6-22) Glucose 89 (70-100) mg/dL Calcium 9.1 (8.4-10.2) mg/dL Total Bilirubin 0.3 (0.2-1.3) mg/dL AST 20 (14-36) IU/L ALT 20 (<35) IU/L Alkaline Phosphatase 92 (38-126) U/L Total Protein 6.6 (6.3-8.2) g/dL Albumin 4.0 (3.5-5.0) g/dL Globulin 2.6 (1.7-4.1) g/dL Albumin/Globulin Ratio 1.5 (1.0-2.8) HCG, Quant 625.12 mIU/mL Blood Type O Positive Point of Care Testing Test Results Positive Urine Dip Bedside Urine Glucose Negative Bedside Urine Bilirubin - Negative Bedside Urine Ketone - Negative Urine Specific [place] 1.02 Bedside Urine Occult Blood - Negative Bedside Urine pH 6.0 Bedside Urine Protein - Negative Bedside Urine Urobilinogen - Negative Bedside Urine Nitrite - Negative Bedside Urine Leukocytes - Negative Esterase Imaging Data US - OB: Radiologist's Impression: PROCEDURE: US PELVIC COMPLETE INDICATIONS: SPOTTING; EARLY TECHNIQUE: Real-time scanning was performed of the pelvic organs, with image documentation. Additional endovaginal scanning was necessary due to incomplete visualization of the adnexal and endometrial structures by transabdominal scanning. COMPARISON: [facility], US, US PELVIC COMPLETE WITH TRANSVAGINAL, 02/17/2024, 8:44. FINDINGS: Uterus: Uterus is anteverted and normal in size at 7.6 x 4.2 x 4.7 cm. The myometrium is homogeneous. The endometrium measures 10 mm combined thickness. No intrauterine fluid collection or gestational sac is seen. Ovaries: The right ovary measures 5.6 x 6.1 x 4.6 cm, with a calculated ovarian volume of 82 cc. A 3.6 cm simple cyst is seen in the right ovary. There is a right ovarian dermoid tumor measuring 3.8 cm. A 2.4 cm hypoechoic structure in the right ovary is also noted with peripheral vascularity. Left ovary is not visualized. No suspicious left adnexal mass. Other: No pathologic free abdominal or pelvic fluid. IMPRESSION: 1. of unknown location. Findings may represent normal early , early failure, or ectopic . Recommend correlation with clinical findings and serial beta HCG measurements as well as follow-up ultrasound as needed. 2. Hypoechoic structure in the right ovary with peripheral vascularity may represent a corpus luteal cyst, hemorrhagic cyst, solid tumor, or possibly ovarian ectopic. 3. Right ovarian dermoid tumor measures up to 3.8 cm, likely not significantly changed when compared to the ultrasound from 02/17/2024. Approved by: Zackery Monson M.D. on 06/12/2024 at 19:41 MDM Narrative Medical decision making narrative: Well-appearing patient with vaginal bleeding in early . HCG quant 625, up from previous values at [facility], approximately 200s per patient report. Ultrasound shows no intrauterine , hypoechoic structure in the right ovary that has not specific that may be either ?corpus luteal cyst, hemorrhagic cyst, solid tumor, or possibly ovarian ectopic?. Patient informed of lab and imaging findings. Recommended repeat HCG and possible repeat ultrasound in 48-72 hours. ED return precautions discussed at bedside Discharge Plan Departure Patient Disposition: Home Clinical Impression: Vaginal bleeding affecting early , Type O blood, Rh positive Instructions: DI for Vaginal Bleeding During Activity Restrictions/Additional Instructions: Your hCG quant today was 625. Your ultrasound did not show a visible and treated in , however at your hCG levels it is still very early. I recommend repeating blood work and possible ultrasound in 48-72 hours to see what direction your quant levels are trending. Prescriptions: No Action lidocaine HCl 2 % jelly in applicator 3 ml topical BID PRN (Reason: pain) Qty: 30 0RF Rx Instructions: Do not use longer than 3-4 days amoxicillin-pot clavulanate 875-125 mg tablet 1 tab PO BID Qty: 20 0RF norethindrone-e.estradiol-iron [Junel FE 1.5/30 (28)] 1.5 mg-30 mcg (21)/75 mg (7) tablet 1 tab PO QDAY Qty: 84 3RF fluoxetine 10 mg capsule 10 mg PO BID Qty: 180 0RF Rx Instructions: Administer in the morning and at noon/midday fluconazole 200 mg tablet 200 mg PO DAILY Qty: 6 0RF scopolamine base 1 mg over 3 days patch 3 day 1 patch transdermal Q3D PRN (Reason: motion sickness) Qty: 4 0RF ibuprofen 800 mg tablet 800 mg PO TID PRN (Reason: pain) Qty: 90 0RF prazosin 5 mg capsule 10 mg PO BEDTIME Qty: 60 5RF tramadol [Ultram] 50 mg tablet 50 mg PO Q6H PRN (Reason: pain) Qty: 10 0RF oxycodone-acetaminophen 5-325 mg tablet 1 tab PO Q6H PRN (Reason: pain) Qty: 10 0RF Referrals: Miscellaneous,Doctor, MD [Primary Care Provider] - Stand Alone Forms: Patient Portal/API
[2024-06-12 18:24] LABS: Add Manual Diff / Slide Review NO; Basophils Absolute Auto 200 /uL (0-100); Basophils Percent Auto 1.5 % (0-2); Eosinophils Absolute Auto 100 /uL (0-450); Eosinophils Percent Auto 0.7 % (2-4); Hematocrit 36.8 % (36-46); Hemoglobin 12.1 g/dL (12.0-16.0); Lymphocytes Absolute Auto 2900 /uL (1100-4500); Lymphocytes Percent Auto 24.9 % (25-40); Mean Corpuscular Hemoglobin 28.2 PG (26-34); Mean Corpuscular Volume 85.5 fL (80-100); Monocytes Absolute Auto 700 /uL (0-900); Monocytes Percent Auto 6.3 % (3-14); Neutrophils Absolute Auto 7900 /uL (1500-7000); Neutrophils Percent Auto 66.6 % (50-75); Platelet Count 354 X10^3/uL (150-400); Red Cell Distribution Width 14.4 % (11.6-14.8); White Blood Cell Count 11.8 X10^3/uL (4.5-11.0)
[2024-06-12 18:36] LABS: Alanine Aminotransferase 20 IU/L (<35); Albumin Globulin Ratio 1.5 (1.0-2.8); Alkaline Phosphatase 92 U/L (38-126); Aspartate Aminotransferase 20 IU/L (14-36); BUN Creatinine Ratio 19.6 (6-22); Bilirubin Total 0.3 mg/dL (0.2-1.3); Blood Urea Nitrogen 10 mg/dL (7-17); Calcium 9.1 mg/dL (8.4-10.2); Carbon Dioxide 21 mmol/L (22-32); Chloride 109 mmol/L (98-107); Estimated Glomerular Filt Rate > 60 mL/min (>60); Globulin 2.6 g/dL (1.7-4.1); Glucose 89 mg/dL (70-100); HEMOLYSIS < 15 (0-50); Potassium 4.2 mmol/L (3.4-5.1); Sodium 136 mmol/L (137-145); Total Protein 6.6 g/dL (6.3-8.2)
[2024-06-12 18:53] LABS: HCG Quantitative /Beta subunit 625.12 mIU/mL
[2024-06-12 19:57] VITALS: BP 127/80; PULSE 82; TEMP 36.7; O2SAT 98
== END 2024-06-12 20:03 | disposition home or self-care (01) ==
PROVIDERS: Emergency Provider Emergency Medicine
DX: O20.9 Hemorrhage in early pregnancy, unspecified (principal); Z67.40 Type O blood, Rh positive; Z3A.01 Less than 8 weeks gestation of pregnancy
CPT/HCPCS: 36415; 76817; 76856; 80053; 81003; 81025; 84702; 85025; 86900; 86901; 99283; 99284

== ENCOUNTER → 2024-07-03 11:27 | Outpatient (CLI) | payer OTHER, SELFPAY ==
[2024-07-03 13:30] LABS: HCG Quantitative /Beta subunit 59074 mIU/mL
== END ==
PROVIDERS: PCP Family Medicine; Referring Provider Family Medicine; Visit Provider Family Medicine
DX: Z33.2 Encounter for elective termination of pregnancy (principal); Z30.09 Encounter for other general counseling and advice on contraception
CPT/HCPCS: 36415; 84702

== ENCOUNTER → 2024-07-08 10:29 | Outpatient (CLI) | payer OTHER, SELFPAY ==
[2024-07-08 13:10] LABS: HCG Quantitative /Beta subunit 2879.9 mIU/mL
== END ==
PROVIDERS: PCP Family Medicine; Referring Provider Family Medicine; Visit Provider Family Medicine
DX: Z30.09 Encounter for other general counseling and advice on contraception (principal); Z33.2 Encounter for elective termination of pregnancy
CPT/HCPCS: 36415; 84702

== ENCOUNTER 2024-12-23 11:55 | Emergency (ER) | payer OTHER, SELFPAY ==
[2024-12-23 12:04] VITALS: BP 125/89; PULSE 129; RESP 20; TEMP 39.3; O2SAT 95; BMI 39.4
[2024-12-23] MEDS: ACETAMINOPHEN 325 MG TABLET 975 MG PO (12:11)
--- NOTE | 2024-12-23 12:11 | DI.RAD.S_ITS ---
PROCEDURE: XR CHEST 2V INDICATIONS: fever TECHNIQUE: 2 views of the chest were acquired. COMPARISON: None. FINDINGS: Surgical changes and devices: None. Lungs and pleura: Lungs are clear. No pleural effusions or pneumothorax. Mediastinum: Mediastinal contours are normal. Heart size is normal. Bones and chest wall: No suspicious bony abnormalities. Soft tissues appear unremarkable. IMPRESSION: No acute cardiopulmonary pathology. Dictated by: Francis Sweeney M.D. on 12/23/2024 at 13:35 Approved by: Francis Sweeney M.D. on 12/23/2024 at 13:36
[2024-12-23 12:12] VITALS: TEMP 39.3
[2024-12-23] MEDS: IBUPROFEN 400 MG TABLET 800 MG PO (12:12)
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
[2024-12-23 12:50] LABS: Influenza A - CEPHEID Flu A NEGATIVE (NEGATIVE); Influenza B - CEPHEID Flu B NEGATIVE (NEGATIVE); Respiratory Syncytial Virus Negative (Negative)
[2024-12-23 12:51] LABS: COVID-19 CEPHEID 4-PLEX PCR Negative (Negative)
[2024-12-23] MEDS: ONDANSETRON 4 MG ODT SL (12:51)
[2024-12-23 13:10] LABS: Strep Grp A by PCR Rapid Negative (Negative)
[2024-12-23 13:25] VITALS: BP 116/58; PULSE 87; RESP 18; TEMP 36.5; O2SAT 96
== END 2024-12-23 14:04 | disposition home or self-care (01) ==
PROVIDERS: Emergency Provider Physician Assistant; PCP Family Medicine
DX: J06.9 Acute upper respiratory infection, unspecified (principal)
CPT/HCPCS: 0241U; 71046; 87651; 99283

== ENCOUNTER 2024-12-25 10:00 | Emergency (ER) | payer OTHER, SELFPAY ==
[2024-12-25 10:13] VITALS: BP 117/63; PULSE 100; RESP 12; TEMP 36; O2SAT 98; BMI 39.4
--- NOTE | 2024-12-25 10:51 | DI.RAD.S_ITS ---
PROCEDURE: XR CHEST 2V INDICATIONS: cough and fever x 5 days, concern PNA TECHNIQUE: 2 views of the chest were acquired. COMPARISON: [facility], CR, XR CHEST 2V, 12/23/2024, 12:17. FINDINGS: Surgical changes and devices: None. Lungs and pleura: Lingular opacity consistent with pneumonia. No pleural effusions or pneumothorax. Mediastinum: Mediastinal contours are normal. Heart size is normal. Bones and chest wall: No suspicious bony abnormalities. Soft tissues appear unremarkable. IMPRESSION: Lingular opacity consistent with pneumonia. Recommend follow-up radiograph after treatment to ensure resolution. Dictated by: Martín Cai M.D. on 12/25/2024 at 11:25 Approved by: Martín Cai M.D. on 12/25/2024 at 11:26
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
[2024-12-25 10:57] LABS: Ictotest Urine Negative (Negative); Urine Volume 10mL (spun)
[2024-12-25 11:01] LABS: Bacteria Urine Moderate (10-30); RBC Urine 1-5/HPF (0-5/HPF); Squamous Epithelial Cell Urine 5-10 /HPF (0-5/HPF); WBC Urine 5-10/HPF (0-5/HPF)
[2024-12-25 11:02] LABS: Culture Indicated Urine Specimen Cultured; Mucus Urine 2+ (Negative)
[2024-12-25] MEDS: KETOROLAC 30 MG/ML VIAL 15 MG IV (11:29)
[2024-12-25] MEDS: SODIUM CHLORIDE 0.9% 1,000 ML 1000 ML IV (11:29)
[2024-12-25] MEDS: ONDANSETRON 4 MG/2 ML INJ IV (11:29)
[2024-12-25 11:44] LABS: Add Manual Diff / Slide Review NO; Basophils Absolute Auto 100 /uL (0-100); Basophils Percent Auto 0.5 % (0-2); Eosinophils Absolute Auto 100 /uL (0-450); Eosinophils Percent Auto 0.6 % (2-4); Hematocrit 37.6 % (36-46); Hemoglobin 12.6 g/dL (12.0-16.0); Lymphocytes Absolute Auto 1700 /uL (1100-4500); Lymphocytes Percent Auto 18.3 % (25-40); Mean Corpuscular HGB Conc 33.6 % (30-36); Mean Corpuscular Hemoglobin 27.7 PG (26-34); Mean Corpuscular Volume 82.3 fL (80-100); Monocytes Absolute Auto 600 /uL (0-900); Monocytes Percent Auto 6.9 % (3-14); Neutrophils Absolute Auto 6800 /uL (1500-7000); Neutrophils Percent Auto 73.7 % (50-75); Platelet Count 244 X10^3/uL (150-400); Red Blood Cell Count 4.57 X10^6/uL (4.0-5.2); Red Cell Distribution Width 14.8 % (11.6-14.8); White Blood Cell Count 9.2 X10^3/uL (4.5-11.0)
[2024-12-25 11:54] LABS: Alanine Aminotransferase 26 IU/L (<35); Albumin Globulin Ratio 1.3 (1.0-2.8); Alkaline Phosphatase 57 U/L (38-126); Aspartate Aminotransferase 26 IU/L (14-36); BUN Creatinine Ratio 14.3 (6-22); Bilirubin Total 0.3 mg/dL (0.2-1.3); Blood Urea Nitrogen 9 mg/dL (7-17); Calcium 8.9 mg/dL (8.4-10.2); Carbon Dioxide 20 mmol/L (22-32); Chloride 105 mmol/L (98-107); Estimated Glomerular Filt Rate > 60 mL/min (>60); Globulin 3.2 g/dL (1.7-4.1); Glucose 92 mg/dL (70-100); HEMOLYSIS < 15 (0-50); Lactate (Lactic Acid) 0.6 mmol/L (0.7-2.1); Potassium 3.7 mmol/L (3.4-5.1); Sodium 135 mmol/L (137-145); Total Protein 7.2 g/dL (6.3-8.2)
[2024-12-25 12:32] LABS: Adenovirus Not Detected (Not Detect); B. parapertussis Not Detected (Not Detecte); Bordetella pertussis Not Detected (Not Detect); Chlamydophila pneumoniae Not Detected (Not Detect); Coronavirus 229E Not Detected (Not Detect); Coronavirus HKU1 Not Detected (Not Detect); Coronavirus NL 63 Not Detected (Not Detect); Coronavirus OC43 Not Detected (Not Detect); Human Metapneumovirus Not Detected (Not Detect); Human Rhinovirus/Enterovirus Not Detected (Not Detect); Influenza A Not Detected (Not Detect); Influenza B Not Detected (Not Detect); Mycoplasma pneumoniae Detected (Not Detect); Parainfluenza Virus 1 Not Detected (Not Detect); Parainfluenza Virus 2 Not Detected (Not Detect); Parainfluenza Virus 3 Not Detected (Not Detect); Parainfluenza Virus 4 Not Detected (Not Detect); Respiratory Syncytial Virus Not Detected (Not Detect); SARS- CoV-2 Not Detected (Not Detecte)
[2024-12-25] MEDS: DOXYCYCLINE HYCLATE 100 MG TABLET PO (13:07)
[2024-12-25 13:14] VITALS: BP 102/59; PULSE 75; RESP 18; TEMP 36.5; O2SAT 97
== END 2024-12-25 13:31 | disposition home or self-care (01) ==
PROVIDERS: Emergency Medicine; Emergency Provider Physician Assistant; PCP Family Medicine
DX: J15.7 Pneumonia due to Mycoplasma pneumoniae (principal); R05.9 Cough, unspecified; Z87.42 Personal history of other diseases of the female genital tract
CPT/HCPCS: 36415; 71046; 80053; 81003; 81015; 81025; 83605; 85025; 87086; 87633; 96361; 96374; 96375; 99284; J1885; J2405